=== PATIENT | male | born 1950 | race Caucasian/White ===

== ENCOUNTER → 2017-11-07 15:00 | Outpatient (REF) | payer MEDICARE, MEDICAID, SELFPAY ==
[2017-11-07 15:17] LABS: Anion Gap 13.8 mEq/L (5-15); Blood Urea Nitrogen 34 mg/dL (7-18); Carbon Dioxide 26 mmol/L (21.0-32.0); Chloride 105 mmol/L (98-107); Creatinine,Serum 1.45 mg/dL (0.70-1.30); Estimated Glomerular Filt Rate 48 ml/min (>60); GFR (African American) 58 ML/MIN (>60); Glucose 179 mg/dL (74-106); Potassium 4.8 mmoL/L (3.5-5.1); Sodium 140 mmol/L (136-145)
== END ==
LOC: LAB 15:00
PROVIDERS: Visit Provider Internal Medicine
DX: E11.9 Type 2 diabetes mellitus without complications (principal)
CPT/HCPCS: 80048

== ENCOUNTER → 2017-12-29 15:22 | Outpatient (POV) | payer MEDICARE, MEDICAID, SELFPAY | PROVIDERS: Visit Provider Internal Medicine Nephrology | DX: Z00.00 Encounter for general adult medical examination without abnormal findings (principal) ==

== ENCOUNTER → 2018-05-15 12:46 | Outpatient (POV) | payer MEDICARE, MEDICAID, SELFPAY | PROVIDERS: PCP Emergency Medicine; Visit Provider Internal Medicine Nephrology | DX: Z00.00 Encounter for general adult medical examination without abnormal findings (principal) ==

== ENCOUNTER → 2018-09-01 10:32 | Outpatient (CLI) | payer MEDICARE, MEDICAID, SELFPAY ==
[2018-09-01 10:36] LABS: Adenovirus F 40/41, stool Not Detected (NotDetected); Astrovirus Not Detected (NotDetected); Campylobacter Not Detected (NotDetected); Clostridium Difficile A/B, PCR Not Detected (NotDetected); Cryptosporidium Not Detected (NotDetected); Cyclospora Cayetanesis Not Detected (NotDetected); Entamoeba histolytica Not Detected (NotDetected); Enteroaggregative E coli Not Detected (NotDetected); Enteropathogenic E coli Not Detected (NotDetected); Enterotoxigenic E coli Not Detected (NotDetected); Giardia lamblia Not Detected (NotDetected); Norovirus Not Detected (NotDetected); Plesimonas Shigalloides, PCR Not Detected (NotDetected); Rotavirus A Not Detected (NotDetected); Salmonella, PCR Not Detected (NotDetected); Sapovirus Not Detected (NotDetected); Shiga-like toxin E coli Not Detected (NotDetected); Shigella Enterovasive E coli Not Detected (NotDetected); Vibrio Cholerae Not Detected (NotDetected); Vibrio, PCR Not Detected (NotDetected); Yersinia Entercolitica, PCR Not Detected (NotDetected)
== END ==
PROVIDERS: Visit Provider Emergency Medicine
DX: R19.7 Diarrhea, unspecified (principal)
CPT/HCPCS: 87507

== ENCOUNTER 2019-03-02 17:42 | Observation (INO) ==
--- NOTE | 2019-03-02 18:01 | Emergency Department Note ---
ED Disposition Clinical Impression: Hyperglycemia, Acute respiratory failure with hypoxia UTI (urinary tract infection) Qualifiers: Urinary tract infection type: site unspecified Hematuria presence: with hematuria Qualified Code(s): N39.0 - Urinary tract infection, site not specified; R31.9 - Hematuria, unspecified Disposition: Admitted As Inpatient Condition on Discharge: Fair Referrals: Provider,Referral, [Primary Care Provider] - - Critical Care Critical Care Time: Yes Attestation: On , the high probability of a clinically significant, sudden or life threatening deterioration of the following system(s) required my full and direct attention, intervention and personal management. The time I documented below is in addition to time spent performing reported procedures but includes the fo llowing listed in this critical care notation. Vital system(s) involved:: Respiratory Failure My critical care processes included: Assessment & monitoring of V/S, Initial and Re-exams, Data Review/Interpretation, Coordinating Care, Medication Orders and management, Documentation Medical Decision Making - [place] Inquiry Pt receiving controlled substance: No Vital Signs: 03/02/19 17:42 03/02/19 18:12 03/02/19 18:30 Temperature 97.8 F Temperature Source Oral Pulse Rate [Left Radial] 70 70 70 Respiratory Rate 17 Blood Pressure [Right Arm] 110/51 L 125/60 126/58 L Blood Pressure Mean [Right Arm] 70 81 80 Blood Pressure Source [Right Arm] Automatic Cuff Blood Pressure Position [Right Arm] Sitting 02 Sat by Pulse Oximetry 96 100 95 Oxygen Delivery Method Room Air - Lab Data Lab Results 03/02/19 17:46: POC Glucose 187 H 03/02/19 18:00: WBC 14.4 H, RBC 3.45 L, Hgb 10.6 L, Hct 33.2 L, MCV 96.4 H, MCH 30.7, MCHC 31.9, RDW 14.8, Plt Count 222, MPV 9.8, Neut % (Auto) 83.8 H, Lymph % (Auto) 9.1 L, [place] % (Auto) 5.2, Eos % (Auto) 1.8, Baso % (Auto) 0.2, Neut # (Auto) 12.1 H, Lymph # (Auto) 1.3, [place] # (Auto) 0.8, Eos # (Auto) 0.3, Baso # (Auto) 0.0 03/02/19 18:00: Sodium 138, Potassium 4.6, Chloride 106, Carbon Dioxide 22, Anion Gap 14.6, BUN 72 H, Creatinine 1.77 H, Estimated Creat Clear 55, Estimated GFR 38 L, Est GFR ( Amer) 46 L, Glucose 207 H, Calcium 8.7, Total Bilirubin 0.3, AST 5 L, ALT 13, Alkaline Phosphatase 83, Total Protein 7.1, Albumin 2.4 L, Globulin 4.7 H, Albumin/Globulin Ratio 0.5 L 03/02/19 18:15: Specimen Source Left radial, O2 % Room air, ABG pH 7.34 L, ABG pCO2 37.5, ABG pO2 47.1 L, ABG HCO3 19.6 L, ABG Total CO2 20.8 L, ABG O2 Saturation 82 L*, ABG Base Excess -6.2 L, Ronak Test Patient unable 03/02/19 18:30: Lactate 1.7 03/02/19 18:46: Urine Color Yellow, Urine Appearance Clear, Urine pH 5.5, Ur Specific [place] 1.020, Urine Protein 2+, Urine Glucose (UA) Negative, Urine Ketones Negative, Urine Blood 3+, Urine Nitrate Negative, Urine Bilirubin Negative, Urine Urobilinogen 0.2, Ur Leukocyte Esterase 2+ A, Urine RBC 50-100, Urine WBC 5-10, Ur Squamous Epith Cells Occasional, Urine Bacteria Trace Result diagrams: 03/02/19 18:00 03/02/19 18:00 Orders (Tests/Meds): ED MEDICATIONS Generic Name Dose Route Start Last Admin Trade Name Freq PRN Reason Stop Dose Admin Sodium Chloride 1,000 mls @ 100 mls/hr 03/02/19 19:00 03/02/19 19:21 Sod Chlor 0.9% 1000ml Bag IV 04/01/19 18:59 100 mls/hr .Q10H JUANITA Administration Ceftriaxone Sodium 1 gm/ 50 mls @ 100 mls/hr 03/02/19 19:45 Sodium Chloride IV 03/16/19 19:44 Q24H JUANITA Protocol Discontinued Medications Generic Name Dose Route Start Last Admin Trade Name Freq PRN Reason Stop Dose Admin Albuterol/Ipratropium 3 ml 03/02/19 19:19 03/02/19 19:36 Duoneb 3ml Neb IH 03/02/19 19:20 3 ml ONCE ONE Administration Methylprednisolone Sodium Succinate 125 mg 03/02/19 19:19 03/02/19 19:22 Solu-Medrol 125mg/2ml Vial IV 03/02/19 19:20 125 mg ONCE ONE Administration ORDERS Category Date Time Status D-Dimer Stat Lab 03/02/19 19:44 Ordered Blood Culture Stat Micro 03/02/19 18:30 Received Urine Culture Stat Micro 03/02/19 18:46 Received - Radiology Data #1 Image(s): Chest Image Reviewed: Yes I have reviewed radiologist's interpretation IMPRESSION: 1. Cardiomegaly with pacemaker present. 2. Probable skinfold artifact on the left which may be confirmed with follow-up. Dictated By: Ronak Ragsdale MD Signed By: <Electronically signed by Ronak Ragsdale MD in OV> 03/02/19 [id number] - Physician Consults Physician Consulted: Willard Campa Time: 19:44 Reason -: Admission Comment/Response: Agrees to admit the patient to the hospital. We discussed the patient's clinical information, including history, exam, laboratory and rad iology results and ED course. Per hospital procedure, I will write temporary bridge inpatient orders on the patient. Specific orders requested by the admitting physician: Discussed work-up for PE given his hypoxia but also in light of his worsening renal function, history of stage III kidney disease. Send a d-dimer, treat with Lovenox for now. IV fluids and recheck chemistry profile in the morning. Continue oxygen, nebulizer treatments, steroids, antibiotics. General Adult HPI - General Chief complaint: Hyper/Hypoglycemia Stated complaint: hyperglycemia Time Seen by Provider: 03/02/19 18:01 Mode of Arrival: EMS Limitations: No Limitations Description of Symptoms (Recalled from ER Triage Doc. by RN): PEr alf pt had high sugar check of 294 and sent him over per for further evaluation and states a possible UTI. Pt states he feels ok at this time. - History of Present Illness HPI narrative: Sent from [facility]. Patient had laboratory studies done today. Discovered to have a UTI. Has a low oxygen saturation of 82%. Leukocytosis. Hyperglycemia. The patient himself is a poor historian and denies any complaints at present including any pain or difficulty breathing, nausea or vomiting. Denies urinary complaints. He does have a history of COPD. - Related Data Home Medications Medication Instructions Recorded Confirmed acetaminophen 300 mg-codeine 30 mg 1 tab PO Q6H 04/11/18 03/02/19 tablet aluminum hydrox-magnesium carb 95 30 ml PO Q4H ml 04/11/18 03/02/19 mg-358 mg/15 mL oral suspension bisacodyl 10 mg rectal suppository 10 mg NM DAILY PRN each 04/11/18 03/02/19 carbidopa 25 mg-levodopa 100 mg 1 tab PO TID 04/11/18 03/02/19 disintegrating tablet ferrous sulfate 325 mg (65 mg 325 mg PO DAILY tab 04/11/18 03/02/19 iron) tablet finasteride 5 mg tablet 5 mg PO DAILY tab 04/11/18 03/02/19 gabapentin 600 mg tablet 600 mg PO TID 04/11/18 03/02/19 loperamide 2 mg capsule 2 mg PO Q6 PRN 04/11/18 03/02/19 metformin 850 mg tablet 850 mg PO TID tab 04/11/18 03/02/19 ondansetron HCl 4 mg tablet 4 mg PO Q4H PRN tab 04/11/18 03/02/19 peg 400-propylene glycol (PF) 0.4 1 drp OPHTHALMIC TID each 04/11/18 03/02/19 %-0.3 % eye drops in a dropperette pioglitazone 15 mg tablet 15 mg PO DAILY tab 04/11/18 03/02/19 trazodone 50 mg tablet 50 mg PO QHS 04/11/18 03/02/19 Aspirin [Aspirin 325mg Tab] 325 mg PO DAILY 02/27/19 03/02/19 Ascorbic Acid [Vitamin C] 1,000 mg PO DAILY 03/02/19 03/02/19 Cholecalciferol (Vitamin D3) 50,000 unit PO DAILY 03/02/19 03/02/19 [Vitamin D3 50,000 unit Cap] Lactulose [Lactulose 10gm/15ml 10 gm PO DAILY PRN 03/02/19 03/02/19 Oral Soln] Allergies Allergy/AdvReac Type Severity Reaction Status Date / Time escitalopram [From Lexapro] Allergy Unknown UNKNOWN Verified 02/27/19 05:04 [facility] History - Hepatitis A Screen Drug use history?: No High risk sexual behaviors?: No History of sexually transmitted infection?: No Currently employed?: No Childcare worker?: No Do you have indoor plumbing?: Yes Do you have electricity?: Yes Attestation statement:: This patient has been screened for Hepatitis A risk factors. I have reviewed the patient's past medical history: Yes Medical History: Reports:: BPH, Chronic Obstructive Pulmonary Disease (COPD), Diabetes Mellitus Type 2, Hyperlipidemia, Internal Pacemaker, Osteoporosis, Renal Disease, Renal Insufficiency Other Medical History: Reports: Anemia, Osteoporosis Other Surgeries: Yes: Pacemaker Amputation: No Fractures: No - Social History Smoking Status: Unknown if ever smoked Alcohol Intake: never Occupational Status: disabled - Psychiatric History Expresses thoughts of harming self/others: None Suicide Plan Description: No Plan Pschychiatric History:: Reports:: Bipolar Disorder Family Hx:: Unable to obtain ROS Obtained: Yes All systems reviewed & no additional complaints - Constitutional Constitutional: Denies fever(s) - Cardiovascular Cardiovascular: Denies chest pain - Respiratory Respiratory: No dyspnea - Gastrointestinal Gastrointestingal: Denies: abdominal pain, diarrhea, vomiting Physical Exam - General General appearance: other Comment: Sleeping, but awakens when spoken to and answers questions appropriately. Oriented to person and place and year, but not month. - Head Head exam: atraumatic, normocephalic - Eye Eye exam: Present: normal appearance, EOMI - ENT ENT exam: Present: mucous membranes moist - Neck Neck exam: Present: normal inspection, trachea midline - Chest Chest inspection: Present: normal inspection, symmetric chest wall rise - Respiratory Respiratory exam: Present: normal lung sounds bilaterally - Cardiovascular Cardiovascular exam: Present: regular rate, normal rhythm, normal heart sounds - Abdominal Exam Abdominal exam: Present: soft. Absent: distention, tenderness - Extremities Exam Extremities exam: Present: normal inspection - Neurological Exam Neurological exam: Present: alert, CN II-XII intact. Absent: motor sensory deficit - Psychiatric Psychiatric exam: Present: normal affect, normal mood - Skin Skin exam: Present: warm, dry
[2019-03-02 18:24] LABS: Basophils % 0.2 % (0.1-2.0); Eosinophils # 0.3 K/mm3 (0.0-0.4); Eosinophils % 1.8 % (0.1-12.0); Hematocrit 33.2 % (42.0-52.0); Hemoglobin 10.6 g/dL (14.1-18.0); Lymphocytes # 1.3 K/mm3 (0.7-4.5); Lymphocytes % 9.1 % (10-50); Mean Corpuscular HGB Conc 31.9 g/dL (31.8-35.4); Mean Corpuscular Hemoglobin 30.7 pg (27.0-31.2); Mean Corpuscular Volume 96.4 fl (80-94); Mean Platelet Volume 9.8 fl (7.4-10.4); Monocytes # 0.8 K/mm3 (0.1-1.0); Monocytes % 5.2 % (1.7-9.3); Neutrophils # 12.1 K/mm3 (1.8-7.8); Neutrophils % 83.8 % (37.0-80.0); Platelet Count 222 K/mm3 (142-424); Red Blood Count 3.45 M/mm3 (4.60-6.20); Red Cell Distribution Width 14.8 % (11.5-17.5); White Blood Count 14.4 K/mm3 (4.8-10.8)
[2019-03-02 18:27] LABS: Albumin Level 2.4 gm/dL (3.4-5.0); Albumin/Globulin Ratio 0.5 (1.1-1.8); Anion Gap 14.6 mEq/L (5-15); Bilirubin,Total 0.3 mg/dL (0.2-1.0); Calcium 8.7 mg/dL (8.5-10.1); Globulin 4.7 gm/dl (1.3-3.2); Potassium 4.6 mmoL/L (3.5-5.1); Total Protein,Serum 7.1 gm/dL (6.4-8.2)
[2019-03-02 19:07] LABS: ABG Base Excess -6.2 mmol/L (-2.4-2.3); ABG HCO3 19.6 mmhg (22.0-26.0); ABG Oxygen Saturation 82 % (90-100); ABG PCO2 37.5 mmhg (35.0-45.0); ABG PH 7.34 mmol/L (7.35-7.45); ABG TCO2 20.8 mmhg (23-27)
[2019-03-02 19:08] LABS: Allen's Test Patient Unable; Oxygen ROOM AIR %
[2019-03-02 19:10] LABS: Microscopic, Urine URINE MICROSCOPIC (MICROSCOPIC)
[2019-03-02 19:10] LABS: ABG PO2 47.1 mmhg (80-100)
[2019-03-02 19:12] LABS: Appearance,Urine CLEAR (Clear); Bilirubin,Urine Negative (Negative); Blood, Urine 3+ (Negative); Color,Urine YELLOW (Yellow); Glucose,Urine (UA) Negative (Negative); Ketones,Urine Negative (Negative); Leukocyte Esterase,Urine 2+ (Negative); PH,Urine 5.5 (5.0-8.5); Protein,Urine 2+ (Negative); Urobilinogen,Urine 0.2 EU/dl (0.2)
[2019-03-02 19:23] LABS: RBC,Urine 50-100 #/hpf (0-3); Squamous Epithelial Cell,Urine Occasional #/hpf (0-5)
[2019-03-02 19:24] LABS: Bacteria,Urine Trace /lpf
[2019-03-03 07:03] LABS: Anion Gap 17.6 mEq/L (5-15); Calcium 8.4 mg/dL (8.5-10.1); Potassium 4.6 mmoL/L (3.5-5.1)
--- NOTE | 2019-03-03 09:19 | History & Physical Report ---
*Admission Date: 03/02/19 *Chief complaint: possible infection *History of present illness: this wm from [facility] presented to the ed with -r residential pt had high sugar check of 294 and sent him over per for further evaluation and states a possible UTI. Pt states he feels ok at this time. Sent from [facility]. Patient had laboratory studies done today. Discovered to have a UTI. Has a low oxygen saturation of 82%. Leukocytosis. Hyperglycemia. The patient himself is a poor historian and denies any complaints at present including any pain or difficulty breathing, nausea or vomiting. Denies urinary complaints. He does have a history of COPD. [facility] History I have reviewed the patient's past medical history: Yes Medical History: Reports:: BPH, Chronic Obstructive Pulmonary Disease (COPD), Diabetes Mellitus Type 2, Hyperlipidemia, Internal Pacemaker, Osteoporosis, Renal Disease, Renal Insufficiency *Have you ever received a pneumonia vaccine?: Yes *Have you received a flu vaccine this season?: Yes Other Medical History: Reports: Anemia, Arthritis, Cataracts, Osteoporosis Other Surgeries: Yes: Pacemaker Amputation: No Fractures: No - *Social History Smoking Status: Unknown if ever smoked Alcohol Intake: never *Occupational Status:: disabled *Travel in the last 8 weeks: None - Psychiatric History Expresses thoughts of harming self/others: None Suicide Plan Description: No Plan Pschychiatric History:: Reports:: Bipolar Disorder Family Hx:: Unable to obtain Review of Systems - Review of Systems Review of systems:: pertinent systems reviewed and negative unless documented below - Constitutional Reports weakness, Denies fever(s) - Eyes Denies change in vision - ENT Denies sore throat - *Cardiovascular Reports shortness of breath, Denies chest pain at rest - *Respiratory Reports cough, Denies coughing up blood - *Gastrointestinal Denies abdominal pain - *Genitourinary Denies blood in urine - *Musculoskeletal Denies joint pain - Integumentary/Breasts Denies rash - *Neurologic Denies seizure-like activity - Psychiatric Reports anxiety Meds Home Medications Medication Instructions Recorded Confirmed Type acetaminophen 300 mg-codeine 30 mg 1 tab PO Q6H 04/11/18 03/03/19 History tablet aluminum hydrox-magnesium carb 95 30 ml PO Q4H ml 04/11/18 03/02/19 History mg-358 mg/15 mL oral suspension bisacodyl 10 mg rectal suppository 10 mg MS DAILY PRN each 04/11/18 03/02/19 History carbidopa 25 mg-levodopa 100 mg 1 tab PO TID 04/11/18 03/03/19 History disintegrating tablet ferrous sulfate 325 mg (65 mg 325 mg PO DAILY tab 04/11/18 03/03/19 History iron) tablet finasteride 5 mg tablet 5 mg PO DAILY tab 04/11/18 03/03/19 History gabapentin 600 mg tablet 600 mg PO TID 04/11/18 03/03/19 History loperamide 2 mg capsule 2 mg PO Q6 PRN 04/11/18 03/02/19 History ondansetron HCl 4 mg tablet 4 mg PO Q4H PRN tab 04/11/18 03/02/19 History peg 400-propylene glycol (PF) 0.4 1 drp OPHTHALMIC TID each 04/11/18 03/02/19 History %-0.3 % eye drops in a dropperette pioglitazone 15 mg tablet 15 mg PO DAILY tab 04/11/18 03/02/19 History Aspirin [Aspirin 325mg Tab] 325 mg PO DAILY 02/27/19 03/03/19 History Ascorbic Acid [Vitamin C] 1,000 mg PO DAILY 03/02/19 03/02/19 History Cholecalciferol (Vitamin D3) 50,000 unit PO DAILY 03/02/19 03/02/19 History [Vitamin D3 50,000 unit Cap] Lactulose [Lactulose 10gm/15ml 10 gm PO DAILY PRN 03/02/19 03/02/19 History Oral Soln] Metformin HCl [Metformin 850mg 850 mg PO TID 03/03/19 03/03/19 History Tablet] Trazodone HCl 50 mg PO HS 03/03/19 03/03/19 History Allergies Allergy/AdvReac Type Severity Reaction Status Date / Time escitalopram [From Lexapro] Allergy Unknown UNKNOWN Verified 02/27/19 05:04 Exam Vital signs and Labs for Last 24 Hours: Temp Pulse Resp BP Pulse Ox 97.5 F L 70 24 154/68 H 97 03/03/19 08:00 03/03/19 08:00 03/03/19 08:00 03/03/19 08:00 03/03/19 08:00 Laboratory Results - last 24 hr 03/02/19 17:46: POC Glucose 187 H 03/02/19 18:00: WBC 14.4 H, RBC 3.45 L, Hgb 10.6 L, Hct 33.2 L, MCV 96.4 H, MCH 30.7, MCHC 31.9, RDW 14.8, Plt Count 222, MPV 9.8, Neut % (Auto) 83.8 H, Lymph % (Auto) 9.1 L, [place] % (Auto) 5.2, Eos % (Auto) 1.8, Baso % (Auto) 0.2, Neut # (Auto) 12.1 H, Lymph # (Auto) 1.3, [place] # (Auto) 0.8, Eos # (Auto) 0.3, Baso # (Auto) 0.0 03/02/19 18:00: Sodium 138, Potassium 4.6, Chloride 106, Carbon Dioxide 22, Anion Gap 14.6, BUN 72 H, Creatinine 1.77 H, Estimated Creat Clear 55, Estimated GFR 38 L, Est GFR ( Amer) 46 L, Glucose 207 H, Calcium 8.7, Total Bilirubin 0.3, AST 5 L, ALT 13, Alkaline Phosphatase 83, Total Protein 7.1, Albumin 2.4 L, Globulin 4.7 H, Albumin/Globulin Ratio 0.5 L 03/02/19 18:00: D-Dimer 1290 H* 03/02/19 18:15: Specimen Source Left radial, O2 % Room air, ABG pH 7.34 L, ABG pCO2 37.5, ABG pO2 47.1 L, ABG HCO3 19.6 L, ABG Total CO2 20.8 L, ABG O2 Saturation 82 L*, ABG Base Excess -6.2 L, Ronak Test Patient unable 03/02/19 18:30: Lactate 1.7 03/02/19 18:46: Urine Color Yellow, Urine Appearance Clear, Urine pH 5.5, Ur Specific [place] 1.020, Urine Protein 2+, Urine Glucose (UA) Negative, Urine Ketones Negative, Urine Blood 3+, Urine Nitrate Negative, Urine Bilirubin Negative, Urine Urobilinogen 0.2, Ur Leukocyte Esterase 2+ A, Urine RBC 50-100, Urine WBC 5-10, Ur Squamous Epith Cells Occasional, Urine Bacteria Trace 03/03/19 01:52: POC Glucose 306 H* 03/03/19 05:43: POC Glucose 181 H 03/03/19 06:03: Sodium 138, Potassium 4.6, Chloride 106, Carbon Dioxide 19 L, Anion Gap 17.6 H, BUN 65 H, Creatinine 1.39 H D, Estimated Creat Clear 65, Estimated GFR 51 L, Est GFR ( Amer) 61 D, Glucose 189 H, Calcium 8.4 L I & O for Last 24 hours: Intake & Output 02/28/19 03/01/19 03/02/19 03/03/19 11:59 11:59 11:59 11:59 Intake Total 1740 / 1740 Balance 1740 / 1740 Weight 205 lb 15.999 oz - Constitutional no acute distress, chronically ill appearing - *Routine HEENT Exam Head: Present: normocephalic Eye: Present: EOMI, PERRL ENT: Present: mucous membranes dry - *Routine Neck Exam Absent: JVD - *Routine Respiratory Exam Present: decreased breath sounds - *Routine Cardiovascular Exam Present: RRR, murmur - *Routine Abdominal Exam Present: soft - *Routine Extremities Exam Absent: calf tenderness - *Routine Skin Exam Present: intact - *Routine Neurological Exam Present: CN II-XII intact - Routine Psychiatric Exam Present: unable to assess Assessment and Plan (1) Parkinson disease Current visit: Yes Status: Acute Category: Medical Code(s): G20 - Parkinson's disease (2) UTI (urinary tract infection) Current visit: Yes Status: Acute Qualifiers: Urinary tract infection type: site unspecified Hematuria presence: with hematuria Qualified Code(s): N39.0 - Urinary tract infection, site not specified; R31.9 - Hematuria, unspecified Category: Medical Code(s): N39.0 - Urinary tract infection, site not specified (3) Cardiac pacemaker Current visit: No Status: Chronic Category: Medical Code(s): Z95.0 - Presence of cardiac pacemaker (4) History of rib fracture Current visit: Yes Status: Acute Category: Medical Code(s): Z87.81 - Personal history of (healed) traumatic fracture (5) Elevated d-dimer Current visit: Yes Status: Acute Category: Medical Code(s): R79.89 - Other specified abnormal findings of blood chemistry (6) Anemia Current visit: Yes Status: Acute Qualifiers: Anemia type: unspecified type Qualified Code(s): D64.9 - Anemia, unspecified Category: Medical Code(s): D64.9 - Anemia, unspecified (7) Chronic renal insufficiency, stage II (mild) Current visit: Yes Status: Acute Category: Medical Code(s): N18.2 - Chronic kidney disease, stage 2 (mild) (8) Acute respiratory failure with hypoxia Current visit: Yes Status: Acute Category: Medical Code(s): J96.01 - Acute respiratory failure with hypoxia (9) Oropharyngeal dysphagia Current visit: No Status: Chronic Category: Medical Code(s): R13.12 - Dysphagia, oropharyngeal phase
--- NOTE | 2019-03-03 11:45 | Pharmacy Consult Notes ---
[facility] Pharmacy VTE Monitoring - Patient Demographics Admission date: 03/03/19 Report Date: 03/03/19 Time: 11:44 Allergies/Adverse Reactions: Patient Allergies escitalopram [From Lexapro] Allergy (Unknown, Verified 02/27/19 05:04) UNKNOWN Height: 1.83 m Weight: 93.44 kg Patient Problems: Current Active Problems (Updated 03/02/19 @ 19:47 by Liam Livingston MD) UTI (urinary tract infection) (Acute) Hyperglycemia (Acute) Acute respiratory failure with hypoxia (Acute) - VTE Risk Labs: VTE Related Lab Results Hgb 10.6 g/dL (14.1-18.0) L 03/02/19 18:00 Hct 33.2 % (42.0-52.0) L 03/02/19 18:00 Plt Count 222 K/mm3 (142-424) 03/02/19 18:00 BUN 65 mg/dL (7-18) H 03/03/19 06:03 Creatinine 1.39 mg/dL (0.70-1.30) H D 03/03/19 06:03 Estimated Creat Clear 65 mL/min (50-200) 03/03/19 06:03 VTE Score: 6 VTE Risk Level: Moderate Risk - Prophylaxis Types of VTE Prophylaxis: TEDS Knee High (ELISEO HOSE ORDER PLACED)
[2019-03-04 08:57] LABS: Basophils % 0.2 % (0.1-2.0); Eosinophils % 0.1 % (0.1-12.0); Hematocrit 32.6 % (42.0-52.0); Hemoglobin 10.3 g/dL (14.1-18.0); Lymphocytes # 0.5 K/mm3 (0.7-4.5); Lymphocytes % 4.2 % (10-50); Mean Corpuscular HGB Conc 31.6 g/dL (31.8-35.4); Mean Corpuscular Hemoglobin 30.8 pg (27.0-31.2); Mean Corpuscular Volume 97.6 fl (80-94); Mean Platelet Volume 9.6 fl (7.4-10.4); Monocytes # 0.5 K/mm3 (0.1-1.0); Monocytes % 4.3 % (1.7-9.3); Neutrophils # 10.4 K/mm3 (1.8-7.8); Neutrophils % 91.2 % (37.0-80.0); Platelet Count 227 K/mm3 (142-424); Red Blood Count 3.34 M/mm3 (4.60-6.20); White Blood Count 11.4 K/mm3 (4.8-10.8)
[2019-03-04 09:04] LABS: Anion Gap 17.4 mEq/L (5-15); Calcium 7.9 mg/dL (8.5-10.1); Potassium 4.4 mmoL/L (3.5-5.1)
--- NOTE | 2019-03-04 09:16 | Progress Note ---
Internal Medicine - PN: Subj *Date: 03/04/19 *Time: 09:14 Interval history: doing better today - more alert Exam Vital signs and Labs for Last 24 Hours: Temp Pulse Resp BP Pulse Ox 97.5 F L 72 24 102/74 L 94 L 03/04/19 08:00 03/04/19 08:00 03/04/19 08:00 03/04/19 08:00 03/04/19 08:00 Laboratory Results - last 24 hr 03/02/19 18:46: Urine Color Yellow, Urine Appearance Clear, Urine pH 5.5, Ur Specific [place] 1.020, Urine Protein 2+, Urine Glucose (UA) Negative, Urine Ketones Negative, Urine Blood 3+, Urine Nitrate Negative, Urine Bilirubin Negative, Urine Urobilinogen 0.2, Ur Leukocyte Esterase 2+ A, Urine RBC 50-100, Urine WBC 5-10, Ur Squamous Epith Cells Occasional, Urine Bacteria Trace 03/03/19 11:08: POC Glucose 253 H 03/03/19 17:05: POC Glucose 264 H 03/03/19 21:45: POC Glucose 171 H 03/04/19 06:40: POC Glucose 317 H* 03/04/19 08:49: WBC 11.4 H, RBC 3.34 L, Hgb 10.3 L, Hct 32.6 L, MCV 97.6 H, MCH 30.8, MCHC 31.6 L, RDW 15.0, Plt Count 227, MPV 9.6, Neut % (Auto) 91.2 H, Lymph % (Auto) 4.2 L, [place] % (Auto) 4.3, Eos % (Auto) 0.1, Baso % (Auto) 0.2, Neut # (Auto) 10.4 H, Lymph # (Auto) 0.5 L, [place] # (Auto) 0.5, Eos # (Auto) 0.0, Baso # (Auto) 0.0 03/04/19 08:49: Sodium 139, Potassium 4.4, Chloride 107, Carbon Dioxide 19 L, Anion Gap 17.4 H, BUN 51 H, Creatinine 1.36 H, Estimated Creat Clear 67, Estimated GFR 52 L, Est GFR ( Amer) 63, Glucose 295 H, Calcium 7.9 L 03/04/19 08:49: Hemoglobin A1c 7.0 I & O for Last 24 hours: Intake & Output 03/01/19 03/02/19 03/03/19 03/04/19 11:59 11:59 11:59 11:59 Intake Total 1740 / 1740 3668 / 3668 Balance 1740 / 1740 3668 / 3668 Weight 205 lb 15.999 oz 207 lb Microbiology Reports for the Last 24 Hours: Microbiology 03/02/19 18:46 Urine,Clean Catch Urine Culture - Preliminary Gram Negative Rods 03/03/19 09:00 Sputum - Expectorated Sputum Gram Stain - Final - Constitutional no acute distress Comments: overweight - *Routine HEENT Exam Head: Present: normocephalic Eye: Present: EOMI, PERRL ENT: Present: mucous membranes dry - *Routine Neck Exam Present: supple - *Routine Respiratory Exam Present: decreased breath sounds, rhonchi - *Routine Cardiovascular Exam Present: RRR, murmur, S4 - *Routine Abdominal Exam Present: soft - *Routine Extremities Exam Absent: edema, calf tenderness - *Routine Skin Exam Present: intact - *Routine Neurological Exam Present: alert, oriented X3, CN II-XII intact, tremors - Routine Psychiatric Exam Present: normal affect Assessment and Plan (1) Parkinson disease Current visit: Yes Status: Acute Category: Medical Code(s): G20 - Parkinson's disease (2) UTI (urinary tract infection) Current visit: Yes Status: Acute Qualifiers: Urinary tract infection type: site unspecified Hematuria presence: with hematuria Qualified Code(s): N39.0 - Urinary tract infection, site not specified; R31.9 - Hematuria, unspecified Category: Medical Code(s): N39.0 - Urinary tract infection, site not specified (3) Cardiac pacemaker Current visit: No Status: Chronic Category: Medical Code(s): Z95.0 - Presence of cardiac pacemaker (4) History of rib fracture Current visit: Yes Status: Acute Category: Medical Code(s): Z87.81 - Personal history of (healed) traumatic fracture (5) Elevated d-dimer Current visit: Yes Status: Acute Category: Medical Code(s): R79.89 - Other specified abnormal findings of blood chemistry (6) Anemia Current visit: Yes Status: Acute Qualifiers: Anemia type: unspecified type Qualified Code(s): D64.9 - Anemia, unspecified Category: Medical Code(s): D64.9 - Anemia, unspecified (7) Chronic renal insufficiency, stage II (mild) Current visit: Yes Status: Acute Category: Medical Code(s): N18.2 - Chronic kidney disease, stage 2 (mild) (8) Acute respiratory failure with hypoxia Current visit: Yes Status: Acute Category: Medical Code(s): J96.01 - Acute respiratory failure with hypoxia (9) Oropharyngeal dysphagia Current visit: No Status: Chronic Category: Medical Code(s): R13.12 - Dysphagia, oropharyngeal phase (10) Overweight (BMI 25.0-29.9) Current visit: Yes Status: Acute Category: Medical Code(s): E66.3 - Overweight
[2019-03-04 09:32] LABS: Lymphocytes % 5 % (10-50); Monocytes % 2 % (2-9); Neutrophils % 92 % (42-76); RBC Morphology Normal; Total Cells Counted 100
[2019-03-05 07:20] LABS: Basophils # 0.1 K/mm3 (0-0.2); Basophils % 0.5 % (0.1-2.0); Eosinophils % 0.1 % (0.1-12.0); Hematocrit 34.7 % (42.0-52.0); Hemoglobin 11.1 g/dL (14.1-18.0); Lymphocytes # 0.7 K/mm3 (0.7-4.5); Lymphocytes % 6.3 % (10-50); Mean Corpuscular HGB Conc 31.9 g/dL (31.8-35.4); Mean Corpuscular Hemoglobin 31.3 pg (27.0-31.2); Mean Corpuscular Volume 97.9 fl (80-94); Mean Platelet Volume 9.2 fl (7.4-10.4); Monocytes # 0.6 K/mm3 (0.1-1.0); Monocytes % 6.1 % (1.7-9.3); Neutrophils # 9.1 K/mm3 (1.8-7.8); Platelet Count 236 K/mm3 (142-424); Red Blood Count 3.54 M/mm3 (4.60-6.20); Red Cell Distribution Width 15.1 % (11.5-17.5); White Blood Count 10.4 K/mm3 (4.8-10.8)
[2019-03-05 07:22] LABS: Anion Gap 17.3 mEq/L (5-15); Potassium 4.3 mmoL/L (3.5-5.1)
[2019-03-05 08:35] LABS: Lymphocytes % 2 % (10-50); Monocytes % 4 % (2-9); Neutrophils % 94 % (42-76); Nucleated Red Blood Cells 1; RBC Morphology Normal; Total Cells Counted 100
--- NOTE | 2019-03-05 13:35 | Progress Note ---
Internal Medicine - PN: Subj *Date: 03/05/19 *Time: 13:32 Interval history: doing better- still sob - has uti and will need different abx Exam Vital signs and Labs for Last 24 Hours: Temp Pulse Resp BP Pulse Ox 97.8 F 69 20 167/91 H 98 03/05/19 08:00 03/05/19 11:38 03/05/19 08:00 03/05/19 08:00 03/05/19 08:00 Laboratory Results - last 24 hr 03/04/19 16:21: POC Glucose 231 H 03/04/19 21:24: POC Glucose 240 H 03/05/19 06:08: POC Glucose 257 H 03/05/19 07:11: WBC 10.4, RBC 3.54 L, Hgb 11.1 L, Hct 34.7 L, MCV 97.9 H, MCH 31.3 H, MCHC 31.9, RDW 15.1, Plt Count 236, MPV 9.2, Neut % (Auto) 87.0 H, Lymph % (Auto) 6.3 L, Addison % (Auto) 6.1, Eos % (Auto) 0.1, Baso % (Auto) 0.5, Neut # (Auto) 9.1 H, Lymph # (Auto) 0.7, Addison # (Auto) 0.6, Eos # (Auto) 0.0, Baso # (Auto) 0.1, Total Counted 100, Neutrophils % (Manual) 94 H, Lymphocytes % (Manual) 2 L, Monocytes % (Manual) 4, Nucleated RBCs 1, Platelet Estimate Normal, RBC Morphology Normal 03/05/19 07:11: Sodium 138, Potassium 4.3, Chloride 106, Carbon Dioxide 19 L, Anion Gap 17.3 H, BUN 42 H, Creatinine 1.28, Estimated Creat Clear 72, Estimated GFR 56 L, Est GFR ( Amer) 67, Glucose 294 H, Calcium 8.0 L 03/05/19 10:54: POC Glucose 347 H* I & O for Last 24 hours: Intake & Output 03/03/19 03/04/19 03/05/19 03/06/19 11:59 11:59 11:59 11:59 Intake Total 1740 / 1740 3668 / 3668 840 / 840 Balance 1740 / 1740 3668 / 3668 840 / 840 Weight 205 lb 15.999 oz 207 lb 210 lb 2 oz Microbiology Reports for the Last 24 Hours: Microbiology 03/03/19 09:00 Sputum - Expectorated Sputum Gram Stain - Final 03/03/19 09:00 Sputum - Expectorated Sputum Sputum Culture - Final Normal Respiratory Rafaela 03/02/19 18:46 Urine,Clean Catch Urine Culture - Final Pseudomonas aeruginosa 03/02/19 18:30 Blood Blood Culture - Preliminary NO GROWTH AFTER 48 HOURS 03/02/19 18:30 Blood Blood Culture - Preliminary NO GROWTH AFTER 48 HOURS - Constitutional no acute distress - *Routine HEENT Exam Head: Present: normocephalic Eye: Present: EOMI, PERRL ENT: Present: mucous membranes dry - *Routine Neck Exam Absent: JVD - *Routine Respiratory Exam Present: decreased breath sounds - *Routine Cardiovascular Exam Present: RRR, murmur - *Routine Abdominal Exam Present: soft - *Routine Extremities Exam Absent: calf tenderness - *Routine Skin Exam Present: intact - *Routine Neurological Exam Present: CN II-XII intact, tremors - Routine Psychiatric Exam Present: normal affect Assessment and Plan (1) Parkinson disease Current visit: Yes Status: Acute Category: Medical Code(s): G20 - Parkinson's disease (2) UTI (urinary tract infection) Current visit: Yes Status: Acute Qualifiers: Urinary tract infection type: site unspecified Hematuria presence: with hematuria Qualified Code(s): N39.0 - Urinary tract infection, site not specified; R31.9 - Hematuria, unspecified Category: Medical Code(s): N39.0 - Urinary tract infection, site not specified (3) Cardiac pacemaker Current visit: No Status: Chronic Category: Medical Code(s): Z95.0 - Presence of cardiac pacemaker (4) History of rib fracture Current visit: Yes Status: Acute Category: Medical Code(s): Z87.81 - Personal history of (healed) traumatic fracture (5) Elevated d-dimer Current visit: Yes Status: Acute Category: Medical Code(s): R79.89 - Other specified abnormal findings of blood chemistry (6) Anemia Current visit: Yes Status: Acute Qualifiers: Anemia type: unspecified type Qualified Code(s): D64.9 - Anemia, unspecified Category: Medical Code(s): D64.9 - Anemia, unspecified (7) Chronic renal insufficiency, stage II (mild) Current visit: Yes Status: Acute Category: Medical Code(s): N18.2 - Chronic kidney disease, stage 2 (mild) (8) Acute respiratory failure with hypoxia Current visit: Yes Status: Acute Category: Medical Code(s): J96.01 - Acute respiratory failure with hypoxia (9) Oropharyngeal dysphagia Current visit: No Status: Chronic Category: Medical Code(s): R13.12 - Dysphagia, oropharyngeal phase (10) Overweight (BMI 25.0-29.9) Current visit: Yes Status: Acute Category: Medical Code(s): E66.3 - Overweight (11) Pseudomonas urinary tract infection Current visit: Yes Status: Acute Category: Medical Code(s): N39.0 - Urinary tract infection, site not specified; B96.5 - Pseudomonas (aeruginosa) (mallei) (pseudomallei) as the cause of diseases classified elsewhere
--- NOTE | 2019-03-06 08:49 | Discharge Summary ---
General - General Admission date:: 03/02/19 Discharge date: 03/06/19 HPI HPI: this wm from [facility] presented to the ed with -r prison pt had high sugar check of 294 and sent him over per for further evaluation and states a possible UTI. Pt states he feels ok at this time. Sent from [facility]. Patient had laboratory studies done today. Discovered to have a UTI. Has a low oxygen saturation of 82%. Leukocytosis. Hyperglycemia. The patient himself is a poor historian and denies any complaints at present including any pain or difficulty breathing, nausea or vomiting. Denies urinary complaints. He does have a history of COPD. Hospital Course Hospital Course: Pt w/ UTI, urine cultures grew Pseudomonas Aeruginosa. Only covered by Cefipime. Cefipime can be IM. Pt will be D/C'ed back to [place] with Cefipimne IV X 7 days or until IV is D/C'ed then can be given IM. Also D/C w/ O2, will wean O2 as tolerated. Objective Vital signs: Temp Pulse Resp BP Pulse Ox 97.7 F 70 18 138/70 97 03/06/19 08:00 03/06/19 08:00 03/06/19 08:00 03/06/19 08:00 03/06/19 08:00 no acute distress - *Routine HEENT Exam Head: Present: normocephalic, atraumatic Eye: Present: EOMI, PERRL ENT: Present: mucous membranes moist - *Routine Neck Exam Present: supple, full ROM. Absent: JVD - *Routine Respiratory Exam Present: decreased breath sounds, CTA bilaterally. Absent: accessory muscle use - *Routine Cardiovascular Exam Present: murmur. Absent: tachycardia - *Routine Abdominal Exam Present: soft, normoactive bowel sounds. Absent: tenderness - *Routine Extremities Exam Present: pulses intact. Absent: cyanosis, calf tenderness - Routine Back/Spine/Pelvis Exam Back/Spine: Present: full ROM. Absent: CVA tenderness - *Routine Skin Exam Present: intact. Absent: cyanosis - *Routine Neurological Exam Present: alert, CN II-XII intact. Absent: motor deficit - Routine Psychiatric Exam Present: normal affect Results Labs on day of discharge: Labs from last 24 hours 03/06/19 03/05/19 03/05/19 05:10 21:20 16:48 POC Glucose 231 H 296 H 290 H 03/05/19 10:54 POC Glucose 347 H* Preliminary micro results at discharge 03/02/19 18:30 Blood Culture - Preliminary Blood NO GROWTH AFTER 48 HOURS 03/02/19 18:30 Blood Culture - Preliminary Blood NO GROWTH AFTER 48 HOURS - Additional Comments Rounded with Dr. Campa all orders per Dr. Campa DS: Diagnosis - Discharge Diagnosis (1) Parkinson disease Status: Acute (2) UTI (urinary tract infection) Status: Acute (3) Cardiac pacemaker Status: Chronic (4) History of rib fracture Status: Acute (5) Elevated d-dimer Status: Acute (6) Anemia Status: Acute (7) Chronic renal insufficiency, stage II (mild) Status: Acute (8) Acute respiratory failure with hypoxia Status: Acute (9) Oropharyngeal dysphagia Status: Chronic (10) Overweight (BMI 25.0-29.9) Status: Acute (11) Pseudomonas urinary tract infection Status: Acute (12) Pseudomonas aeruginosa infection Status: Acute Discharge Plan - Patient Discharge Instructions ACTIVITY: Continue current activity DIET: continue same diet Patient Instructions: DI for Multiple Drug-resistant Organism (MDRO) Infection - Follow up Plan Follow up with: Paris Bueno APRN [Advanced Practice Nurse] - 1 week Disposition: Xfer [facility] Home Medications: Home Medications Medication Instructions Recorded Confirmed Type acetaminophen 300 mg-codeine 30 mg 1 tab PO Q6H 04/11/18 03/03/19 History tablet aluminum hydrox-magnesium carb 95 30 ml PO Q4H ml 04/11/18 03/02/19 History mg-358 mg/15 mL oral suspension bisacodyl 10 mg rectal suppository 10 mg SC DAILY PRN each 04/11/18 03/02/19 History carbidopa 25 mg-levodopa 100 mg 1 tab PO TID 04/11/18 03/03/19 History disintegrating tablet ferrous sulfate 325 mg (65 mg 325 mg PO DAILY tab 04/11/18 03/03/19 History iron) tablet finasteride 5 mg tablet 5 mg PO DAILY tab 04/11/18 03/03/19 History gabapentin 600 mg tablet 600 mg PO TID 04/11/18 03/03/19 History loperamide 2 mg capsule 2 mg PO Q6 PRN 04/11/18 03/02/19 History ondansetron HCl 4 mg tablet 4 mg PO Q4H PRN tab 04/11/18 03/02/19 History peg 400-propylene glycol (PF) 0.4 1 drp OPHTHALMIC TID each 04/11/18 03/02/19 History %-0.3 % eye drops in a dropperette pioglitazone 15 mg tablet 15 mg PO DAILY tab 04/11/18 03/02/19 History Aspirin [Aspirin 325mg Tab] 325 mg PO DAILY 02/27/19 03/03/19 History Ascorbic Acid [Vitamin C] 1,000 mg PO DAILY 03/02/19 03/02/19 History Cholecalciferol (Vitamin D3) 50,000 unit PO DAILY 03/02/19 03/02/19 History [Vitamin D3 50,000 unit Cap] Lactulose [Lactulose 10gm/15ml 10 gm PO DAILY PRN 03/02/19 03/02/19 History Oral Soln] Metformin HCl [Metformin 850mg 850 mg PO TID 03/03/19 03/03/19 History Tablet] Trazodone HCl 50 mg PO HS 03/03/19 03/03/19 History Cefepime HCl [Maxipime 2gm Vial] 2 gm IV Q8H 7 Days #21 vial 03/06/19 Rx Prescriptions/Medication Reconciliation: New Cefepime HCl [Maxipime 2gm Vial] 2 gm IV Q8H 7 Days #21 vial Continued aluminum hydrox-magnesium carb 95 mg-358 mg/15 mL oral suspension 30 ml PO Q4H ml loperamide 2 mg capsule 2 mg PO Q6 PRN PRN Reason: loose stool ondansetron HCl 4 mg tablet 4 mg PO Q4H PRN tab PRN Reason: nausea and vomiting acetaminophen 300 mg-codeine 30 mg tablet 1 tab PO Q6H carbidopa 25 mg-levodopa 100 mg disintegrating tablet 1 tab PO TID ferrous sulfate 325 mg (65 mg iron) tablet 325 mg PO DAILY tab finasteride 5 mg tablet 5 mg PO DAILY tab pioglitazone 15 mg tablet 15 mg PO DAILY tab peg 400-propylene glycol (PF) 0.4 %-0.3 % eye drops in a dropperette 1 drp OPHTHALMIC TID each bisacodyl 10 mg rectal suppository 10 mg SC DAILY PRN each PRN Reason: constipation gabapentin 600 mg tablet 600 mg PO TID Aspirin [Aspirin 325mg Tab] 325 mg PO DAILY Lactulose [Lactulose 10gm/15ml Oral Soln] 10 gm PO DAILY PRN PRN Reason: Constipation Cholecalciferol (Vitamin D3) [Vitamin D3 50,000 unit Cap] 50,000 unit PO DAILY Ascorbic Acid [Vitamin C] 1,000 mg PO DAILY Metformin HCl [Metformin 850mg Tablet] 850 mg PO TID Trazodone HCl 50 mg PO HS
--- NOTE | 2019-03-06 10:30 | Progress Note ---
Critical Care Event Note Code activated: Yes Narrative: This case had a high probability of a clinically significant, sudden, or life threatening deterioration of this patient's condition which required my full and direct attention, intervention and personal management. CODE RONNI called. I responded from the emergency department. The patient's primary care provider, Paris Bueno, FIELD MARKETING TEAM LEADER for Dr. Campa is present. CPR is in progress and the patient is being ventilated via bag valve mask. He was reportedly going to be discharged today back to [facility] care facility. He had been examined this morning and was conversant and without complaints. Diagnosed with a resistant urinary tract infection during this admission. Had been hypoxic on admission and has had a CT scan that ruled out pulmonary embolism. The patient's initial rhythm when I arrive is PEA. Pupils are fixed and midposition. There are no spontaneous respirations or respiratory movements. He was treated with intravenous epinephrine and bicarbonate. Intubated with 7.5 endotracheal tube. Rhythm was predominantly PEA, but did have an episode of VF, defibrillated back to PEA. He regained spontaneous circulation, palpable pulses, twice but each time deteriorated back to PEA. Dr. Campa consulted regarding whether he wanted epinephrine drip versus discontinuing efforts if he lost his pulse. He recommends discontinuing efforts if pulse could not be maintained without intravenous boluses of epinephrine. He deteriorated to PEA, then ventricular tachycardia briefly, then ventricular fibrillation, then asystole all within a matter of a couple of minutes. Further efforts were discontinued. He was pronounced at 10:05 AM after more than 30 minutes of ACLS. Endotracheal Intubation Performed by: ALLEN WASHINGTON Authorized by: ALLEN WASHINGTON Consent: The procedure was performed in an emergent situation. Patient identity confirmed: arm band Indications: cardiac arrest Intubation method: direct Laryngoscope size: Elam 3 Tube size: 7.5 mm Tube type: cuffed Number of attempts: 1 Cords visualized: yes Post-procedure assessment: chest rise and CO2 detector Breath sounds: equal and absent over the epigastrium Cuff inflated: yes ETT to corner of mouth: 22 cm Tube secured with: ETT bui Critical care time: 30 - 74 mins [facility] Critical Care Exam Vital signs: Temp Pulse Resp BP Pulse Ox 97.7 F 70 18 138/70 97 03/06/19 08:00 03/06/19 08:00 03/06/19 08:00 03/06/19 08:00 03/06/19 08:00
--- NOTE | 2019-03-06 10:31 | Death Note ---
Pronouncement Note - Date and Time of Date of : 03/06/19 Time of : 10:05 - PCOD Preliminary cause of : Cardiac arrest - Summary Additional details: see critical care note for code blue summary - Additional Data Confirmation of : no pulse, no respirations, no heart sounds, pupils fixed and dilated Family: not available Attending/PCP notified?: Yes Attending physician: Jose Roberto Campa MD Was code activated?: Yes
== END 2019-03-06 16:59 | disposition expired ==
LOC: ER 17:42 → 2ND 17:42
PROVIDERS: ADMIT Family Medicine; ATTEND Emergency Medicine
DX: Z79.84 Long term (current) use of oral hypoglycemic drugs; E11.9 Type 2 diabetes mellitus without complications; Z79.899 Other long term (current) drug therapy; J96.01 Acute respiratory failure with hypoxia; Z79.82 Long term (current) use of aspirin; D64.9 Anemia, unspecified; I46.9 Cardiac arrest, cause unspecified; R13.12 Dysphagia, oropharyngeal phase; Z95.0 Presence of cardiac pacemaker; Z88.8 Allergy status to other drugs, medicaments and biological substances; J44.9 Chronic obstructive pulmonary disease, unspecified; N39.0 Urinary tract infection, site not specified
CPT/HCPCS: 36415; 71010; 71045; 71275; 80048; 80053; 81001; 82803; 82962; 83036; 83605; 85007; 85025; 85378; 87040; 87070; 87086; 87088; 87186; 87205; 94640; 94761; 96365; 96372; 96375; 99284; G0378; Q9967